=== PATIENT | female | born 1995 | race Caucasian/White ===

== ENCOUNTER 2020-10-25 10:37 | Emergency (ER) | payer MEDICAID ==
[~2020-10-25] VITALS: Ht 165.1 cm; Wt 51.3 kg
[2020-10-25 11:01] VITALS: BP 119/60
--- NOTE | 2020-10-25 11:11 | NUR ---
ED Nurse Note: patient from home and walked in due to abdominal discomfort wtih constipation. History of IBS. Patient also refused to wear a mask due to anxiety. Pt is AAO x4, ambulates with steady gait with non labored breathing.
--- NOTE | 2020-10-25 11:27 | Emergency Room Report ---
History of Present Illness General Chief Complaint: Abdominal Pain Source: Patient Present Illness HPI patient presents with complaints of abdominal discomfort over the past two years reports she has had several referrals to different GI specialist, but has not been able to be seen she reports increased reflux recently feels that she has been constipated more over the last several days. patient is tolerating liquid intake, but reports decreased solid foods denies fevers reports surgery for ovarian torsion two years ago and laproscopic surgery for that denies any blood per rectum Allergies: Coded Allergies: No Known Allergies (Unverified , 10/25/20) COVID-19 Screening Contact w/high risk pt: No Experienced COVID-19 symptoms?: No COVID-19 Testing performed P[employer]ER: No Patient History Past Medical History: see triage record Now: No Reviewed Nursing Documentation: PMH: Agreed; PSxH: Agreed Nursing Documentation-PMH Past Medical History: No History, Except For Hx Gastrointestinal Problems: Yes - IBS History Of Psychiatric Problem: Yes - anxiety Review of Systems All Other Systems: negative except mentioned in HPI Physical Exam Vital Signs Date Time Temp Pulse Resp B/P (MAP) Pulse Ox O2 Delivery O2 Flow Rate FiO2 10/25/20 11:01 97.9 77 18 119/60 (79) 98 Room Air Sp02 EP Interpretation: reviewed, normal General Appearance: well appearing, no apparent distress Head: normocephalic, atraumatic Eyes: bilateral eye PERRL, bilateral eye EOMI ENT: hearing grossly normal, EOM grossly intact Neck: full range of motion, supple Respiratory: lungs clear, no respiratory distress, no retraction Cardiovascular #1: regular rate, rhythm Gastrointestinal: non tender, soft, other - does not appear cachectic Genitourinary: no CVA tenderness Musculoskeletal: back normal, normal range of motion Neurologic: alert, oriented x3 Psychiatric: normal inspection Skin: no rash Lymphatic: no adenopathy Medical Decision Making Diagnostic Impression: Primary Impression: Abdominal pain Additional Impression: Vomiting ER Course multiple differentials considered including but not limited to, obstruction, ectopic , dehydration, appendicitis patient is complex, requiring extensive testing ct does not show acute process, but there was a nodule seen patient does report smoking and were notified of the need for follow up labs are normal patient continues to do well patient tolerating oral intake There is some significant chronicity to the patient's presentation today acutely she is provided information with GI referrals To attempt And will return with any concerns or changes Labs Test 10/25/20 11:40 White Blood Count 6.4 K/UL (4.8-10.8) Red Blood Count 4.84 M/UL (4.20-5.40) Hemoglobin 14.7 G/DL (12.0-16.0) Hematocrit 45.6 % (37.0-47.0) Mean Corpuscular Volume 94 FL (80-99) Mean Corpuscular Hemoglobin 30.4 PG (27.0-31.0) Mean Corpuscular Hemoglobin Concent 32.2 G/DL (32.0-36.0) Red Cell Distribution Width 12.3 % (11.6-14.8) Platelet Count 239 K/UL (150-450) Mean Platelet Volume 8.1 FL (6.5-10.1) Neutrophils (%) (Auto) 49.3 % (45.0-75.0) Lymphocytes (%) (Auto) 39.8 % (20.0-45.0) Monocytes (%) (Auto) 6.6 % (1.0-10.0) Eosinophils (%) (Auto) 3.3 % (0.0-3.0) Basophils (%) (Auto) 1.1 % (0.0-2.0) Sodium Level 139 MMOL/L (136-145) Potassium Level 3.8 MMOL/L (3.5-5.1) Chloride Level 102 MMOL/L (98-107) Carbon Dioxide Level 30 MMOL/L (21-32) Anion Gap 7 mmol/L (5-15) Blood Urea Nitrogen 11 mg/dL (7-18) Creatinine 0.8 MG/DL (0.55-1.30) Estimat Glomerular Filtration Rate > 60 mL/min (>60) Glucose Level 103 MG/DL (74-106) Calcium Level 9.3 MG/DL (8.5-10.1) Total Bilirubin 1.8 MG/DL (0.2-1.0) Direct Bilirubin 0.3 MG/DL (0.0-0.3) Aspartate Amino Transf (AST/SGOT) 18 U/L (15-37) Alanine Aminotransferase (ALT/SGPT) 25 U/L (12-78) Alkaline Phosphatase 54 U/L (46-116) Total Protein 7.6 G/DL (6.4-8.2) Albumin 4.6 G/DL (3.4-5.0) Globulin 3.0 g/dL Albumin/Globulin Ratio 1.5 (1.0-2.7) Lipase 160 U/L (73-393) Human Chorionic Gonadotropin, Qual Negative (NEGATIVE) CT/MRI/US Diagnostic Results CT/MRI/US Diagnostic Results : Impression CT abdomen pelvisImpression: No acute or significant abnormality 5 mm left base lung nodule. No further follow-up necessary if there is no signi ficant smoking history or risk factors for lung carcinoma. Consider follow-up CT in 6- 12 months if there our significant risk factors Last Vital Signs Date Time Temp Pulse Resp B/P (MAP) Pulse Ox O2 Delivery O2 Flow Rate FiO2 10/25/20 11:01 97.9 77 18 119/60 (79) 98 Room Air Status: improved Disposition: HOME, SELF-CARE Condition: Improved Scripts Ondansetron Odt* (ZOFRAN ODT*) 8 Mg Tab.rapdis 4 MG ORAL Q12HR PRN for Nausea & Vomiting, #10 TAB Prov: Leo Bhatia DO 10/25/20 Dicyclomine Hcl (DICYCLOMINE HCL) 10 Mg/5 Ml Solution 10 MG PO DAILY for 7 Days, ML Prov: Leo Bhatia DO 10/25/20 Additional Instructions: Patient is provided with the discharge instructions notified to follow up with primary doctor in the next 2-3 days otherwise return to the er with any worsening symptoms. Please note that this report is being documented using [employer] technology. This can lead to erroneous entry secondary to incorrect interpretation by the dictating instrument. Leo Bhatia DO Oct 25, 2020 11:27
--- NOTE | 2020-10-25 11:53 | NUR ---
ED Nurse Note:blood sent to labs, pt. was placed on stretcher after she was feeling weak
[2020-10-25] MEDS ORDERED: Bacitracin Oint UD TOPIC ONE (11:57)
[2020-10-25 11:58] LABS: BASOPHILS % (AUTO) 1.1 % (0.0-2.0); EOSINOPHILS % (AUTO) 3.3 % (0.0-3.0); HEMATOCRIT 45.6 % (37.0-47.0); HEMOGLOBIN 14.7 G/DL (12.0-16.0); LYMPHOCYTES % (AUTO) 39.8 % (20.0-45.0); MEAN CORPUSCULAR VOLUME 94 FL (80-99); MONOCYTES % (AUTO) 6.6 % (1.0-10.0); NEUTROPHILS % (AUTO) 49.3 % (45.0-75.0); PLATELET COUNT 239 K/UL (150-450); RED BLOOD COUNT 4.84 M/UL (4.20-5.40); RED CELL DISTRIBUTION WIDTH 12.3 % (11.6-14.8); WHITE BLOOD COUNT 6.4 K/UL (4.8-10.8)
[2020-10-25 12:01] LABS: ANION GAP 7 mmol/L (5-15); BLOOD UREA NITROGEN 11 mg/dL (7-18); CALCIUM 9.3 MG/DL (8.5-10.1); CARBON DIOXIDE 30 MMOL/L (21-32); CHLORIDE 102 MMOL/L (98-107); CREATININE 0.8 MG/DL (0.55-1.30); POTASSIUM 3.8 MMOL/L (3.5-5.1); SODIUM 139 MMOL/L (136-145)
[2020-10-25 12:11] LABS: ALANINE AMINOTRANSFERASE 25 U/L (12-78); ALBUMIN 4.6 G/DL (3.4-5.0); ALBUMIN/GLOBULIN RATIO 1.5 (1.0-2.7); ALKALINE PHOSPHATASE 54 U/L (46-116); ASPARTATE AMINO TRANSFERASE 18 U/L (15-37); BILIRUBIN,TOTAL 1.8 MG/DL (0.2-1.0)
[2020-10-25 12:13] LABS: BILIRUBIN,DIRECT 0.3 MG/DL (0.0-0.3)
--- NOTE | 2020-10-25 13:11 | Diagnostic Imaging Report ---
Indication: Abdominal pain Technique: Spiral acquisitions obtained through the abdomen and pelvis. No oral contrast utilized, per emergency room physician request No IV contrast utilized, per referring physician request.. Multiplanar reconstructions were generated. Total dose length product 152 mGycm. CTDIvol(s) 3 mGy. Dose reduction achieved using automated exposure control Comparison: None Findings: Lack of enteric contrast limits assessment of the GI tract. The appendix is normal. No evidence of diverticulosis or diverticulitis. No small bowel distention. No free or loculated intraperitoneal gas or fluid is evident. The distal esophagus, stomach, duodenum are unremarkable. No free or loculated intraperitoneal gas or fluid is evident. The colon demonstrates mild but unremarkable retained stool Lack of IV contrast limits assessment of the solid organs. The liver, gallbladder, bile ducts, pancreas, spleen are grossly unremarkable. No retroperitoneal or mesenteric mass or adenopathy. No pelvic mass or adenopathy. There is a 5 mm nodule at the left lung base, images 3 and 4 of axial series 6. Included lung bases are otherwise clear. The bones are unremarkable. Impression: No acute or significant abnormality 5 mm left base lung nodule. No further follow-up necessary if there is no significant smoking history or risk factors for lung carcinoma. Consider follow-up CT in 6-12 months if there our significant risk factors The CT scanner at [facility] is accredited by the [employer] and the scans are performed using protocols designed to limit radiation exposure to as low as reasonably achievable to attain images of sufficient resolution adequate for diagnostic evaluation.
[2020-10-25] MEDS ORDERED: ZOFRAN ODT8 MG ORAL (13:18)
[2020-10-25] MEDS ORDERED: DICYCLOMIN10 MG/5 M1 PO (13:18)
[2020-10-25 13:37] VITALS: BP 120/60
--- NOTE | 2020-10-25 13:41 | NUR ---
DISCHARGED HOME WITH INSTRUCTION AND RX FOLLOW UP WITH PMD
== END 2020-10-25 13:44 | disposition home or self-care (01) ==
LOC: EMR 11:14
DX: R10.9 Unspecified abdominal pain (principal); R11.10 Vomiting, unspecified; K58.9 Irritable bowel syndrome, unspecified
CPT/HCPCS: 36415; 74176; 80053; 82248; 83690; 84703; 85025; Z7502; 99284

== ENCOUNTER 2020-11-26 12:51 | Outpatient (CLI) | payer MEDICAID ==
[~2020-11-26] VITALS: Ht 165.1 cm; Wt 48.1 kg
[~2020-11-26 12:51] MED LIST: DICYCLOMIN10 MG/5 M1 PO; ZOFRAN ODT8 MG ORAL
[2020-11-27 13:18] VITALS: BP 119/75
[2020-11-27] MEDS ORDERED: PROBIOTIC1 EAC2 PO (13:20)
--- NOTE | 2020-11-27 16:44 | Consultation ---
DATE OF CONSULTATION: 11/26/2020 CONSULTING PHYSICIAN: Calin Mullen MD CHIEF COMPLAINT: Numerous complaints, which I will dictate in a second. HISTORY OF PRESENT ILLNESS: This is a 25-year-old, anxious-looking woman who was brought to our office because she has been complaining of having severe nausea, vomiting, cannot tolerate anything by mouth, severe constipation. Apparently, patient admitted to the emergency room at [facility], never required admission. Patient apparently had a CT scan, which was nondiagnostic. Abdominal ultrasound per patient, which was nondiagnostic. Patient is seen in the office with her mother at the bedside, very anxious, very rapid speech, and worried. PAST MEDICAL HISTORY: 1. Anal fissure. 2. Panic attacks. 3. Lots of stress. 4. Constipation. 5. GERD. PAST SURGICAL HISTORY: Right ovarian torsion. MEDICATIONS: Probiotics. FAMILY HISTORY: Questionable IBD. SOCIAL HISTORY: Patient denies any tobacco, alcohol, or drug abuse. ALLERGIES: No known drug allergies. REVIEW OF SYSTEMS: Positive for abdominal pain, GERD, constipation, vomiting, bloating, 35 pounds of weight loss. PHYSICAL EXAMINATION: HEENT: Normocephalic and atraumatic. Sclerae anicteric. NECK: Supple. No evidence of lymphadenopathy. CARDIOVASCULAR: Regular rate and rhythm. Plus S1-S2. LUNGS: Clear to auscultation bilaterally. ABDOMEN: Positive bowel sounds. Soft and nontender. No rebound. No guarding. No peritoneal sign. EXTREMITIES: No cyanosis, no clubbing, no edema. ASSESSMENT AND PLAN: This is a 25-year-old female with complaints of weight loss, nausea, vomiting, abdominal pain, highly suspicious related to either psychiatric disorder or anxiety attacks given patient had negative CT scan and ultrasound per patient. Given the benefit of doubt given patient is Ashkenazi Yazdanism and more prone to have Crohn disease and given she had anal fissure in the past, we will consider doing an endoscopy and colonoscopy for evaluation of weight loss, rule out Crohn disease. Meanwhile, patient was given PPI, prescription for omeprazole 1 tablet a day until authorization for the endoscopy and colonoscopy is obtained. Calin Mullen M.D. DR: FREDY JOB#: [id number] CC:
== END 2020-11-26 14:51 | disposition home or self-care (01) ==
LOC: PAN 12:51
DX: K21.9 Gastro-esophageal reflux disease without esophagitis (principal); R10.9 Unspecified abdominal pain; K59.00 Constipation, unspecified; R11.2 Nausea with vomiting, unspecified; R14.0 Abdominal distension (gaseous); R63.4 Abnormal weight loss; Z68.1 Body mass index [BMI] 19.9 or less, adult
CPT/HCPCS: 99203